=== PATIENT | female | born 1985 | race Caucasian/White ===

== ENCOUNTER 2018-06-14 12:14 | Emergency (ER) | payer SELFPAY ==
[~2018-06-14] VITALS: Ht 160 cm; Wt 72.6 kg
[2018-06-14 12:29] VITALS: BP 138/100
--- NOTE | 2018-06-14 12:38 | PHYS DOC ---
Past History Past Medical History: Diabetes, Other Additional Past Medical Histor: peripheral neuropathy Alcohol Use: None Drug Use: None Adult General Chief Complaint Chief Complaint: COUGH HPI HPI Patient is a 33-year-old female who presents with a cough for the past month. Nasal congestion. Became a little bit worse this morning, coughing so hard that she threw up one time. No blood in the emesis. Nothing seems to make the symptoms better or worse. Patient has not seen her primary care physician for this. No fever.[] Review of Systems Review of Systems Constitutional: Denies fever or chills [] Eyes: Denies change in visual acuity, redness, or eye pain [] HENT: Nasal congestion and sore throat for the past month[] Respiratory: See history of present illness[] Cardiovascular: No chest pain or palpitations[] GI: Denies abdominal pain, nausea, bloody stools or diarrhea [] : Denies dysuria or hematuria [] Musculoskeletal: Denies back pain or joint pain [] Integument: Denies rash or skin lesions [] Neurologic: Denies headache, focal weakness or sensory changes [] Endocrine: Denies polyuria or polydipsia [] All other systems were reviewed and found to be within normal limits, except as documented in this note. Allergies Allergies Allergies Coded Allergies Type Severity Reaction Last Updated Verified No Known Drug Allergies 06/14/18 No Physical Exam Physical Exam Constitutional: Well developed, well nourished, no acute distress, non-toxic appearance. [] HENT: Normocephalic, atraumatic, bilateral external ears normal, oropharynx moist, no oral exudates, nose with clear rhinorrhea, posterior pharyngeal streaking,. [] Eyes: PERRLA, EOMI, conjunctiva normal, no discharge. [] Neck: Normal range of motion, no tenderness, supple, no stridor. [] Cardiovascular:Heart rate is slightly tachycardic with a regular rhythm, no murmur [] Lungs & Thorax: Bilateral breath sounds clear to auscultation [] Abdomen: Bowel sounds normal, soft, no tenderness, no masses, no pulsatile masses. [] Skin: Warm, dry, no erythema, no rash. [] Back: No tenderness, no CVA tenderness. [] Extremities: No tenderness, no cyanosis, no clubbing, ROM intact, no edema. [] Neurologic: Alert and oriented X 3, normal motor function, normal sensory function, no focal deficits noted. [] Psychologic: Affect normal, judgement normal, mood normal. [] EKG EKG [] Radiology/Procedures Radiology/Procedures Chest x-ray shows no focal infiltrate, no effusion, no pneumothorax[] Course & Med Decision Making Course & Med Decision Making Pertinent Labs and Imaging studies reviewed. (See chart for details) ED course and medical decision making: Patient arrived, was placed in bed, and tolerated exam well. She was. Tolerant while in the emergency department. She was transported to and from radiology with any complications. There is no evidence of a pneumonia. No evidence of oral intake intolerance. Will start patient on cough/congestion medicine that also has anti-medic properties. Discussed this plan with the patient voiced understanding. All questions were answered.[] Dragon Disclaimer Dragon Disclaimer This electronic medical record was generated, in whole or in part, using a voice recognition dictation system. Departure Departure: Impression: Primary Impression: Cough Disposition: HOME, SELF-CARE Condition: IMPROVED Referrals: [facility] (PCP) Follow-up in 2 days Patient Instructions: Cough, Adult, Nausea and Vomiting Additional Instructions: Drink plenty of fluids, frequent small sips. No fatty foods, no milk, and no pepper for the next 48 hours. For the next 48 hours eat a diet rich in carbohydrates with foods such as bananas, rice, applesauce, and toast. Follow- up with your primary care team in 2 days. Return to the ER if unable to tolerate liquids, or any other concerns. Scripts D-Methorphan Hb/Prometh Hcl (PROMETHAZINE-DM SYRUP) 118 Ml Syrup 5 ML PO PRN Q4HRS for CONGESTION, #120 ML Prov: LOAN CHEN DO 06/14/18 LOAN CHEN DO Jun 14, 2018 12:38
[2018-06-14] MEDS ORDERED: ONDANSETRON ODT 4 MG TAB.RAPDIS PO ONE (13:00)
--- NOTE | 2018-06-14 13:41 | RAD ---
PA and lateral views of the chest. Comparison: Chest radiograph dated 04/24/2007. Indication: cough with short of breath x 1 month, pt shielded Findings: Normal lung volume. No focal airspace disease. Normal pulmonary vasculature. No pleural effusion. No pneumothorax. The cardiomediastinal silhouette is normal in appearance. The great vessels are normal. No acute osseous abnormality. Mild multilevel degenerative changes of the visualized spine. Impression: 1. No acute cardiopulmonary process. Electronically signed by: Krzysztof Hopkins MD (06/14/2018 1:38 PM) [facility]
[2018-06-14] MEDS ORDERED: D-ME118S2 PO (13:43)
== END 2018-06-14 14:00 | disposition home or self-care (01) ==
LOC: ER 12:14
DX: R05 Cough (principal); R09.81 Nasal congestion; R11.11 Vomiting without nausea; E11.42 Type 2 diabetes mellitus with diabetic polyneuropathy
CPT/HCPCS: 71046; 99283; Q0162

== ENCOUNTER 2018-09-08 20:23 | Emergency (ER) | payer SELFPAY ==
[~2018-09-08] VITALS: Ht 160 cm; Wt 81.6 kg
[~2018-09-08 20:23] MED LIST: D-ME118S2 PO
--- NOTE | 2018-09-08 20:50 | PHYS DOC ---
Past History Past Medical History: Depression, Diabetes, Other Additional Past Medical Histor: peripheral neuropathy Past Surgical History: Tubal ligation Smoking: Cigarettes Alcohol Use: None Drug Use: None Adult General Chief Complaint Chief Complaint: HALLUCINATIONS AUDIBLE/VISUAL HPI HPI Patient is a 33-year-old female presents with a change in mental status and behavior. This is been going on for the past 3 days. Denies head trauma or headache. Family that is with the patient says that the patient is slurring some words. No suicidal or homicidal ideation. She is hearing voices telling her odd things. Patient realizes that there is no physical body giving rise to these voices. There have been no changes in medications. No trauma. No fever. No nausea or vomiting. More of a confusional state rather than inability to move an arm or leg. Patient denies taking any drugs recently. She does have a history of marijuana and methamphetamine abuse with her last use being in April 2018.[] Review of Systems Review of Systems Constitutional: Denies fever or chills [] Eyes: Denies change in visual acuity, redness, or eye pain [] HENT: Denies nasal congestion or sore throat [] Respiratory: Denies cough or shortness of breath [] Cardiovascular: No chest pain or palpitations[] GI: Denies abdominal pain, nausea, vomiting, bloody stools or diarrhea [] : Denies dysuria or hematuria [] Musculoskeletal: Denies back pain or joint pain [] Integument: Denies rash or skin lesions [] Neurologic: Denies headache, focal weakness or sensory changes [] Endocrine: Denies polyuria or polydipsia [] All other systems were reviewed and found to be within normal limits, except as documented in this note. Allergies Allergies Allergies Coded Allergies Type Severity Reaction Last Updated Verified No Known Drug Allergies 06/14/18 No Physical Exam Physical Exam Constitutional: Well developed, well nourished, no acute distress, non-toxic appearance. [] HENT: Normocephalic, atraumatic, bilateral external ears normal, oropharynx moist, no oral exudates, nose normal. [] Eyes: PERRLA, EOMI, conjunctiva normal, no discharge. [] Neck: Normal range of motion, no tenderness, supple, no stridor. [] Cardiovascular:Heart rate is tachycardic with a regular rhythm, no murmur [] Lungs & Thorax: Bilateral breath sounds clear to auscultation [] Abdomen: Bowel sounds normal, soft, no tenderness, no masses, no pulsatile masses. [] Skin: Warm, dry, no erythema, no rash. [] Back: No tenderness, no CVA tenderness. [] Extremities: No tenderness, no cyanosis, no clubbing, ROM intact, no edema. [] Neurologic: Alert and oriented X 3, normal motor function, normal sensory function, no focal deficits noted. NIH stroke scale of 0. Normal gait[] Psychologic: Affect normal, judgement normal, mood normal. [] EKG EKG EKG shows a sinus tachycardia at 119 bpm. Normal axis, QTC 451 ms, no ST elevations. No terminal 40 ms QRS prolongation in lead aVR. No old EKG available for comparison. Interpreted by me at 2127[] Radiology/Procedures Radiology/Procedures PROCEDURE: PORTABLE CHEST 1V AP portable chest radiograph 09/08/2018 Clinical History: Shortness of breath. An AP erect portable digital radiograph of the chest was obtained. Comparison study is dated 06/14/2018. The cardiac and mediastinal silhouettes are within normal limits in size and configuration. No acute pulmonary infiltrate is seen. No pleural effusion or pneumothorax is noted. The osseous structures are unchanged. Impression: No acute abnormality is seen. PROCEDURE: CT HEAD WO CONTRAST CT scan of the head without contrast 09/08/2018 Clinical History: Altered mental status. Technique: Unenhanced, contiguous, 5 mm axial sections were obtained through the head. One or more of the following individualized dose reduction techniques were utilized for this study: 1. Automated exposure control. 2. Adjustment of the mA and/or kV according to patient size. 3. Use of iterative reconstruction technique. Findings: The ventricles and sulci are within normal limits in size and configuration. No focal area of abnormal attenuation is seen involving the brain parenchyma. No extra-axial fluid collection is seen. No skull fracture is seen. Impression: Negative study.[] Course & Med Decision Making Course & Med Decision Making Pertinent Labs and Imaging studies reviewed. (See chart for details) ED course: Patient arrived, was placed in bed, and tolerated exam well. She was transported to and from radiology with any complications. Her fingerstick was noted to be elevated. She was given IV fluids to address the tachycardia. And her heart rate improved. After the return of the laboratory and imaging studies, these were discussed with patient and family who voiced understanding. Family notes that she is been taking increased doses of her pain and muscle relaxant medicines beyond the prescribed amounts. Consultation was made with the hospitalist service for admission and they graciously agreed. She was admitted in improved condition. At approximately 28/05/11, patient is refusing admission. She relates that she has a barbosa hearing in 2 days. And states that she cannot be admitted. She appears able to make an informed decision including being able to state the risks in her own words to include or permanent disability. She signed out AGAINST MEDICAL ADVICE. Family was with her. Medical decision making: Diabetic patient with a change in behavior and hallucinations. This may be due to taking too much of her Lyrica as well as muscle relaxants. There is no evidence of diabetic ketoacidosis, hyperosmolar nonketotic coma, stroke, intracranial mass or bleed, nor significant electrolyte abnormality. She is being admitted for further evaluation and treatment.[] Dragon Disclaimer Dragon Disclaimer This electronic medical record was generated, in whole or in part, using a voice recognition dictation system. Departure Departure: Impression: Primary Impression: Mental status alteration Additional Impressions: Hallucinations Diabetes Disposition: 07 AGAINST MEDICAL ADVICE Admitting Physician: Margie Whipple Condition: IMPROVED [facility] Problem Qualifiers Primary Impression: Mental status alteration Altered mental status type: unspecified Qualified Codes: R41.82 - Altered mental status, unspecified Additional Impressions: Diabetes Diabetes mellitus type: type 2 Diabetes mellitus fci insulin use: unspecified long term care phlebotomist insulin use status Diabetes mellitus complication status: without complication Qualified Codes: E11.9 - Type 2 diabetes mellitus without complications LOAN CHEN DO Sep 08, 2018 20:50
[2018-09-08] MEDS: IV NORMAL SALINE 1,000ML 1,000 ML IV ONE (21:11)
[2018-09-08 21:20] LABS: BASO # 0.1 x10^3/uL (0.0-0.2); BASO % 1 % (0-3); EOS # 0.1 x10^3/uL (0.0-0.7); EOS % 1 % (0-3); HEMATOCRIT 41.3 % (36.0-47.0); LYMPH % 45 % (24-48); MEAN CORPUSCULAR HEMOGLOBIN 30 pg (25-35); MEAN CORPUSCULAR HGB CONC 34 g/dL (31-37); MEAN CORPUSCULAR VOLUME 88 fL (79-100); MONO # 0.5 x10^3/uL (0.0-1.1); MONO % 5 % (0-9); NEUT # 4.3 x10^3uL (1.8-7.7); NEUT % 48 % (31-73); PLATELET COUNT 240 x10^3/uL (140-400); RED BLOOD COUNT 4.68 x10^6/uL (3.50-5.40); RED CELL DISTRIBUTION WIDTH 12.9 % (11.5-14.5)
[2018-09-08 21:28] LABS: BARBITURATES NEG (NEG); BENZODIAZEPINES NEG (NEG); CANNABINOIDS NEG (NEG); COCAINE NEG (NEG); METHADONE NEG (NEG); OPIATES NEG (NEG); PHENCYCLIDINE NEG (NEG)
--- NOTE | 2018-09-08 21:28 | EKG ---
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
--- NOTE | 2018-09-08 21:30 | RAD ---
CT scan of the head without contrast 09/08/2018 Clinical History: Altered mental status. Technique: Unenhanced, contiguous, 5 mm axial sections were obtained through the head. One or more of the following individualized dose reduction techniques were utilized for this study: 1. Automated exposure control. 2. Adjustment of the mA and/or kV according to patient size. 3. Use of iterative reconstruction technique. Findings: The ventricles and sulci are within normal limits in size and configuration. No focal area of abnormal attenuation is seen involving the brain parenchyma. No extra-axial fluid collection is seen. No skull fracture is seen. Impression: Negative study. Electronically signed by: Manny Colbert MD (09/08/2018 9:28 PM) [facility]
--- NOTE | 2018-09-08 21:31 | RAD ---
AP portable chest radiograph 09/08/2018 Clinical History: Shortness of breath. An AP erect portable digital radiograph of the chest was obtained. Comparison study is dated 06/14/2018. The cardiac and mediastinal silhouettes are within normal limits in size and configuration. No acute pulmonary infiltrate is seen. No pleural effusion or pneumothorax is noted. The osseous structures are unchanged. Impression: No acute abnormality is seen. Electronically signed by: Manny Colbert MD (09/08/2018 9:28 PM) [facility]
[2018-09-08 21:33] LABS: BILIRUBIN,URINE NEG (NEG); CLARITY,URINE CLEAR; COLOR,URINE YELLOW; GLUCOSE,URINE NEG (NEG); NITRITE,URINE NEG (NEG); RBC,URINE OCC /HPF (0-2); UROBILINOGEN,URINE 0.2 mg/dL (0.2 mg/dL)
[2018-09-08 21:34] LABS: BACTERIA,URINE FEW /HPF (0-FEW); SQUAMOUS EPITHELIAL CELL,UR OCC /LPF
[2018-09-08 21:40] LABS: AMPHETAMINE/METHAMPHETAMINE NEG (NEG)
[2018-09-08 21:41] LABS: ALBUMIN 3.8 g/dL (3.4-5.0); CALCIUM 10.1 mg/dL (8.5-10.1); CREATININE 0.8 mg/dL (0.6-1.0); GFR 82.1; POTASSIUM 3.7 mmol/L (3.5-5.1); TOTAL BILIRUBIN 0.2 mg/dL (0.2-1.0); TOTAL PROTEIN 7.8 g/dL (6.4-8.2)
[2018-09-08 22:40] VITALS: BP 138/77
[2018-09-08] MEDS ORDERED: IV NORMAL SALINE 1,000ML 1,000 ML IV SCH (22:45)
[2018-09-08] MEDS ORDERED: ACETAMINOPHEN 325 MG TABLET PO PRN (22:45)
[2018-09-08] MEDS ORDERED: ONDANSETRON PF 4 MG/2 ML VIAL. IV PRN (22:45)
== END 2018-09-08 23:12 | disposition left against medical advice (07) ==
LOC: ER 20:23 → UNDOADMIN 21:55 → ICU 21:55 → ER 23:12
DX: R41.82 Altered mental status, unspecified (principal); R44.0 Auditory hallucinations; E11.42 Type 2 diabetes mellitus with diabetic polyneuropathy; F32.9 Major depressive disorder, single episode, unspecified; F17.210 Nicotine dependence, cigarettes, uncomplicated
CPT/HCPCS: 36415; 70450; 71045; 80053; 80307; 81001; 81025; 82140; 82550; 82947; 83735; 83880; 84484; 85025; 85610; 85730; 87040; 93005; 96360; 96361; 99285-25; J7030

== ENCOUNTER 2020-09-12 11:12 | Emergency (ER) | payer MEDICAID ==
[~2020-09-12] VITALS: Ht 160 cm; Wt 75.7 kg
[~2020-09-12 11:12] MED LIST changes: +BACL20TA PO; +CLIN150C15 PO; +CYCL5TAB PO; -D-ME118S2 PO; +GABA800T5 PO; +HYDR-2155 PO; +INSU100I13 SQ; +LIRA0.6P2 SQ; +NITR100C62 PO; +POTA20TA4 PO; +PROM118S10 PO
[2020-09-12 12:15] LABS: CALCIUM 8.9 mg/dL (8.5-10.1); CREATININE 0.9 mg/dL (0.6-1.0); GFR 70.8; POTASSIUM 4.5 mmol/L (3.5-5.1)
[2020-09-12 12:16] LABS: BASO # 0.1 x10^3/uL (0.0-0.2); BASO % 1 % (0-3); EOS # 0.2 x10^3/uL (0.0-0.7); EOS % 2 % (0-3); HEMATOCRIT 41.2 % (36.0-47.0); LYMPH # 3.8 x10^3/uL (1.0-4.8); LYMPH % 37 % (24-48); MEAN CORPUSCULAR HEMOGLOBIN 30 pg (25-35); MEAN CORPUSCULAR HGB CONC 34 g/dL (31-37); MEAN CORPUSCULAR VOLUME 89 fL (79-100); MONO # 0.6 x10^3/uL (0.0-1.1); MONO % 6 % (0-9); NEUT # 5.7 x10^3uL (1.8-7.7); NEUT % 55 % (31-73); PLATELET COUNT 358 x10^3/uL (140-400); RED BLOOD COUNT 4.61 x10^6/uL (3.50-5.40); RED CELL DISTRIBUTION WIDTH 13.8 % (11.5-14.5); WHITE BLOOD COUNT 10.4 x10^3/uL (4.0-11.0)
[2020-09-12 12:16] LABS: BARBITURATES NEG (NEG); BENZODIAZEPINES NEG (NEG); CANNABINOIDS NEG (NEG); COCAINE NEG (NEG); METHADONE NEG (NEG); OPIATES NEG (NEG); PHENCYCLIDINE NEG (NEG)
[2020-09-12 12:18] LABS: AMPHETAMINE/METHAMPHETAMINE POS (NEG)
[2020-09-12 12:20] LABS: ACETAMIN < 2.0 mcg/mL (10-30); ALBUMIN 3.7 g/dL (3.4-5.0); ALBUMIN/GLOBULIN RATIO 0.8 (1.0-1.7); TOTAL BILIRUBIN 0.1 mg/dL (0.2-1.0); TOTAL PROTEIN 8.1 g/dL (6.4-8.2)
[2020-09-12 12:22] LABS: BILIRUBIN,URINE NEG (NEG); CLARITY,URINE HAZY; COLOR,URINE YELLOW; GLUCOSE,URINE NEG (NEG); NITRITE,URINE NEG (NEG); UROBILINOGEN,URINE 0.2 mg/dL (0.2 mg/dL)
[2020-09-12 12:24] LABS: BACTERIA,URINE MOD /HPF (0-FEW); RBC,URINE 0 /HPF (0-2); SQUAMOUS EPITHELIAL CELL,UR MANY /LPF
[2020-09-12] MEDS ORDERED: BACLOFEN 20 MG TABLET PO ONE (14:00)
[2020-09-12] MEDS ORDERED: GABAPENTIN 400 MG CAPSULE. PO ONE (14:00)
[2020-09-12] MEDS ORDERED: FOSFOMYCIN TROMETHAMINE 3 GM PACKET PO ONE (14:15)
--- NOTE | 2020-09-12 14:17 | PHYS DOC ---
Past History Past Medical History: Anxiety, Depression, Diabetes, Hypertension, Other Additional Past Medical Histor: neuropathy, Hep C, drug abuse (SRIRAM FLORES APRN) Past Surgical History: No Surgical History (SRIRAM FLORES APRN) Smoking: Non-smoker Alcohol Use: None (SRIRAM FLORES APRN) General Adult EDM: Chief Complaint: SUICIDAL IDEATION HPI: HPI: Patient is a 35-year-old female presents with depression, anxiety and SI. Patient states "I have a history of SI attempts in the past". Patient has a history of methamphetamine use. Patient states that she is clean and does not use any longer. Patient is stating that she is wanting to get inpatient care for depression and suicidal thoughts. (SRIRAM FLORES APRN) Review of Systems: Review of Systems: Constitutional: Denies fever or chills Eyes: Denies change in visual acuity HENT: Denies nasal congestion or sore throat Respiratory: Denies cough or shortness of breath Cardiovascular: Denies chest pain or edema GI: Denies abdominal pain, nausea, vomiting, bloody stools or diarrhea : Denies dysuria Musculoskeletal: Denies back pain or joint pain Integument: Denies rash Neurologic: Denies headache, focal weakness or sensory changes Endocrine: Denies polyuria or polydipsia Lymphatic: Denies swollen glands Psychiatric: Reports depression and anxiety (SRIRAM FLORES APRN) Current Medications: Current Meds: Current Medications Medications (Trade) Dose Ordered Sig/Caroline Start Time Stop Time Status Last Admin Dose Admin Baclofen (Lioresal) 20 mg ONCE ONCE 09/12/20 14:00 09/12/20 14:01 DC 09/12/20 13:58 20 MG Gabapentin (Neurontin) 800 mg 1X ONCE 09/12/20 14:00 09/12/20 14:01 DC 09/12/20 13:59 800 MG (SRIRAM FLORES APRN) Allergies: Allergies: Allergies Coded Allergies Type Severity Reaction Last Updated Verified No Known Drug Allergies 03/22/20 No (SRIRAM FLORES APRN) Physical Exam: PE: Constitutional: Well developed, well nourished, no acute distress, non-toxic appearance. [] HENT: Normocephalic, atraumatic, bilateral external ears normal, oropharynx moist, no oral exudates, nose normal. [] Eyes: PERRLA, EOMI, conjunctiva normal, no discharge. [] Neck: Normal range of motion, no tenderness, supple, no stridor. [] Cardiovascular:Heart rate regular rhythm, no murmur [] Lungs & Thorax: Bilateral breath sounds clear to auscultation [] Abdomen: Bowel sounds normal, soft, no tenderness, no masses, no pulsatile masses. [] Skin: Warm, dry, no erythema, no rash. [] Back: No tenderness, no CVA tenderness. [] Extremities: No tenderness, no cyanosis, no clubbing, ROM intact, no edema. [] Neurologic: Alert and oriented X 3, normal motor function, normal sensory function, no focal deficits noted. [] Psychologic: Sad, tearful (SRIRAM FLORES SEO EXECUTIVE) Current Patient Data: Labs: Laboratory Tests Test 09/12/20 11:25 09/12/20 11:37 09/12/20 11:40 09/12/20 11:45 Urine Collection Type Unknown Urine Color Yellow Urine Clarity Hazy Urine pH 6.5 Urine Specific [place] 1.020 Urine Protein Neg (NEG-TRACE) Urine Glucose (UA) Neg mg/dL (NEG) Urine Ketones (Stick) Neg mg/dL (NEG) Urine Blood Trace (NEG) Urine Nitrite Neg (NEG) Urine Bilirubin Neg (NEG) Urine Urobilinogen Dipstick 0.2 mg/dL (0.2 mg/dL) Urine Leukocyte Esterase Trace (NEG) Urine RBC 0 /HPF (0-2) Urine WBC 5-10 /HPF (0-4) Urine Squamous Epithelial Cells Many /LPF Urine Bacteria Mod /HPF (0-FEW) Urine Opiates Screen Neg (NEG) Urine Methadone Screen Neg (NEG) Urine Barbiturates Neg (NEG) Urine Phencyclidine Screen Neg (NEG) Urine Amphetamine/Methamphetamine Pos (NEG) Urine Benzodiazepines Screen Neg (NEG) Urine Cocaine Screen Neg (NEG) Urine Cannabinoids Screen Neg (NEG) Urine Ethyl Alcohol Neg (NEG) POC Urine HCG, Qualitative hcg negative (Negative) White Blood Count 10.4 x10^3/uL (4.0-11.0) Red Blood Count 4.61 x10^6/uL (3.50-5.40) Hemoglobin 14.0 g/dL (12.0-15.5) Hematocrit 41.2 % (36.0-47.0) Mean Corpuscular Volume 89 fL (79-100) Mean Corpuscular Hemoglobin 30 pg (25-35) Mean Corpuscular Hemoglobin Concent 34 g/dL (31-37) Red Cell Distribution Width 13.8 % (11.5-14.5) Platelet Count 358 x10^3/uL (140-400) Neutrophils (%) (Auto) 55 % (31-73) Lymphocytes (%) (Auto) 37 % (24-48) Monocytes (%) (Auto) 6 % (0-9) Eosinophils (%) (Auto) 2 % (0-3) Basophils (%) (Auto) 1 % (0-3) Neutrophils # (Auto) 5.7 x10^3uL (1.8-7.7) Lymphocytes # (Auto) 3.8 x10^3/uL (1.0-4.8) Monocytes # (Auto) 0.6 x10^3/uL (0.0-1.1) Eosinophils # (Auto) 0.2 x10^3/uL (0.0-0.7) Basophils # (Auto) 0.1 x10^3/uL (0.0-0.2) Sodium Level 139 mmol/L (136-145) Potassium Level 4.5 mmol/L (3.5-5.1) Chloride Level 104 mmol/L (98-107) Carbon Dioxide Level 25 mmol/L (21-32) Anion Gap 10 (6-14) Blood Urea Nitrogen 23 mg/dL (7-20) H Creatinine 0.9 mg/dL (0.6-1.0) Estimated GFR (Cockcroft-Gault) 70.8 BUN/Creatinine Ratio 26 (6-20) H Glucose Level 185 mg/dL (70-99) H Calcium Level 8.9 mg/dL (8.5-10.1) Total Bilirubin 0.1 mg/dL (0.2-1.0) L Aspartate Amino Transferase (AST) 18 U/L (15-37) Alanine Aminotransferase (ALT) 27 U/L (14-59) Alkaline Phosphatase 81 U/L (46-116) Total Protein 8.1 g/dL (6.4-8.2) Albumin 3.7 g/dL (3.4-5.0) Albumin/Globulin Ratio 0.8 (1.0-1.7) L Salicylates Level 5.0 mg/dL (2.8-20.0) Salicylate Last Dose Date Unknown Salicylate Last Dose Time Unknown Acetaminophen Level < 2.0 mcg/mL (10-30) L Acetaminophen Last Dose Date Unknown Acetaminophen Last Dose Time Unknown SARS-CoV-2 Antigen (Rapid) Negative (NEGATIVE) Vital Signs: Vital Signs Date Time Temp Pulse Resp B/P (MAP) Pulse Ox O2 Delivery O2 Flow Rate FiO2 09/12/20 11:12 98.7 71 16 168/106 97 Room Air (SRIRAM FLORES APRN) EKG: EKG: [] (SRIRAM FLORES APRN) Radiology/Procedures: Radiology/Procedures: [] (SRIRAM FLORES APRN) Heart Score: C/O Chest Pain: No Risk Factors: Risk Factors: DM, Current or recent (<one month) smoker, HTN, HLP, family history of CAD, obesity. Risk Scores: Score 0 - 3: 2.5% MACE over next 6 weeks - Discharge Home Score 4 - 6: 20.3% MACE over next 6 weeks - Admit for Clinical Observation Score 7 - 10: 72.7% MACE over next 6 weeks - Early Invasive Strategies (SRIRAM FLORES APRN) Course & Med Decision Making: Course & Med Decision Making Pertinent Labs and Imaging studies reviewed. (See chart for details) [] 35-year-old female who presents with SI and depression. Patient has a history of SI attempts. Kendrick from PAT team consulted to speak with patient. UA positive for methamphetamine. Patient states that she has been clean does not understand how her urine could be positive for methamphetamine. Also positive for infection. Patient given fosfomycin to treat UTI. Covid was negative. Kendrick is getting inpatient placement for patient. Patient will be admitted to [facility]. Patient is appreciative and on board with placement plan. (SRIRAM FLORES APRN) Jarrod Disclaimer: Jarrod Disclaimer: This electronic medical record was generated, in whole or in part, using a voice recognition dictation system. (SRIRAM FLORES APRN) Attending Co-Sign The patient was seen and interviewed as well as examined at the bedside. The chart was reviewed. The case was discussed. Agree with the plan of care. (LUIS M HENRY DO) Departure Departure: Impression: Primary Impression: Suicidal ideation Additional Impression: Depression Qualified Codes: F32.9 - Major depressive disorder, single episode, unspe cified Disposition: 01 HOME / SELF CARE / HOMELESS Condition: STABLE Referrals: PCP,WANDA (PCP) Patient Instructions: Suicidal Feelings, How to Help Yourself Additional Instructions: You were seen in the emergency room for suicidal thoughts. Your urine was also positive for infection. You were given medication in the emergency room to treat UTI. We also found placement for you at an inpatient facility to help with your depression and suicidal thoughts. EMERGENCY DEPARTMENT GENERAL DISCHARGE INSTRUCTIONS Thank you for coming to [facility] (ED) today and trusting us with you care. We trust that you had a positivie experience in our Emergency Department. If you wish to speak to the department management, you may call the director at [phone]. YOUR FOLLOW UP INSTRUCTIONS ARE FOLLOWS: 1. Do you have a private Doctor? If you do not have a private doctor, please ask for a resource list of physicians or clinics that may be able to assist you with follow up care. 2. The Emergency Physician has interpreted your x-rays. The X-Ray specialist will also review them. If there is a change in the findings, you will be notified in 48 hours when at all possible. 3. A lab test or culture has been done, your results will be reviewed and you will be notified if you need a change in treatment. ADDITIONAL INSTRUCTIONS AND INFORMATION: 1. Your care today has been supervised by a physician who is specially trained in emergency care. Many problems require more than one evaluation for a complete diagnosis and treatment. We recommend that you schedule your follow up appointment as recommended to ensure complete treatment of you illness or injury. If you are unable to obtain follow up care and continue to have a problem, or if your condition worsens, we recommend that you return to the ED. 2. We are not able to safely determine your condition over the phone nor are we able to give sound medical advice over the phone. For these safety reasons, if you call for medical advice we will ask you to come to the ED for further evaluation. 3. If you have any questions regarding these discharge instructions please call the ED at [phone]. SAFETY INFORMATION: In the interest of safety, wellness, and injury prevention; we encourage you to wear your sealbelt, if you smoke; quite smoking, and we encourage family to use a protective helmet for bicycling and other sporting events that present an increased risk for head injury. IF YOUR SYMPTOMS WORSEN OR NEW SYMPTOMS DEVELOP, OR YOU HAVE CONCERNS ABOUT YOUR CONDITION; OR IF YOUR CONDITION WORSENS WHILE YOU ARE WAITING FOR YOUR FOLLOW UP APPOINTMENT; EITHER CONTACT YOUR PRIMARY CARE DOCTOR, THE PHYSICIAN WHOSE NAME AND NUMBER YOU WERE GIVEN, OR RETURN TO THE ED IMMEDIATELY. SRIRAM FLORES APRN Sep 12, 2020 14:17 LUIS M HENRY DO Sep 14, 2020 06:21
[2020-09-12 14:34] VITALS: BP 133/99
== END 2020-09-12 16:23 ==
LOC: ER 11:12 → MERGE 11:12 → ER 16:23
DX: R45.851 Suicidal ideations (principal); F32.9 Major depressive disorder, single episode, unspecified; F41.9 Anxiety disorder, unspecified; I10 Essential (primary) hypertension; E11.40 Type 2 diabetes mellitus with diabetic neuropathy, unspecified; Z20.822 Contact with and (suspected) exposure to COVID-19
CPT/HCPCS: 36415; 80053; 80307; 80329; 81001; 81025; 85025; 87086; 87426; 99285; U0003; G0480

== ENCOUNTER 2020-09-21 16:41 | Inpatient (IN) | payer MEDICAID ==
[~2020-09-21] VITALS: Ht 160 cm; Wt 76.5 kg
[2020-09-21] MEDS ORDERED: IV NORMAL SALINE 1,000ML 1,000 ML IV ONE ×2 (16:45→19:30)
--- NOTE | 2020-09-21 17:08 | PHYS DOC ---
Past History Past Medical History: Anxiety, Depression, Diabetes, Hypertension, Other Additional Past Medical Histor: neuropathy, Hep C, drug abuse Past Surgical History: No Surgical History Smoking: Non-smoker Alcohol Use: None Drug Use: Marijuana, Methamphetamine General Adult EDM: Chief Complaint: Laceration HPI: HPI: 35-year-old female presents with laceration of her left ring finger. She initially stated that it just happened, but then told me that it was sometime last night. She was digging through a dumpster or something. The patient is intoxicated on drugs and not all of her answers are making sense. She has some other superficial scratches of her lower legs. She denies any other complaints. Review of Systems: Review of Systems: Constitutional: Denies fever or chills Eyes: Denies change in visual acuity HENT: Denies nasal congestion or sore throat Respiratory: Denies cough or shortness of breath Cardiovascular: Denies chest pain or edema GI: Denies abdominal pain, nausea, vomiting, bloody stools or diarrhea : Denies dysuria Musculoskeletal: Denies back pain or joint pain Integument: Laceration left ring finger. Neurologic: Denies headache, focal weakness or sensory changes Endocrine: Denies polyuria or polydipsia Lymphatic: Denies swollen glands Psychiatric: Denies depression or anxiety Current Medications: Current Meds: Current Medications Medications (Trade) Dose Ordered Sig/Caroline Start Time Stop Time Status Last Admin Dose Admin Lorazepam (Ativan Inj) 2 mg 1X ONCE 09/21/20 16:45 09/21/20 16:52 DC Sodium Chloride 1,000 ml @ 1,000 mls/hr 1X ONCE 09/21/20 16:45 09/21/20 17:44 Allergies: Allergies: Allergies Coded Allergies Type Severity Reaction Last Updated Verified No Known Drug Allergies 06/14/18 No Physical Exam: PE: Constitutional: Well developed, well nourished, unkept, intoxicated. [] HENT: Normocephalic, atraumatic, bilateral external ears normal, oropharynx moist, no oral exudates, nose normal. [] Eyes: PERRLA, EOMI, conjunctiva normal, no discharge. [] Neck: Normal range of motion, no tenderness, supple, no stridor. [] Cardiovascular:Heart rate regular rhythm, no murmur [] Lungs & Thorax: Bilateral breath sounds clear to auscultation [] Abdomen: Bowel sounds normal, soft, no tenderness, no masses, no pulsatile masses. [] Skin: 4 cm laceration of the left ring finger appears several hours old. [] Back: No tenderness, no CVA tenderness. [] Extremities: No tenderness, no cyanosis, no clubbing, ROM intact, no edema. [] Neurologic: Patient is fidgety and constantly moving, consistent with methamphetamine use. [] Psychologic: Affect pressured, judgement impaired, mood normal. [] EKG: EKG: [] Radiology/Procedures: Radiology/Procedures: [] Impressions: XR FINGER(S)_LEFT 2+VIEWS_RT 09/21/2020 4:58 PM INDICATION: Laceration COMPARISON: None available. TECHNIQUE: 3 views of the fourth digit of the left hand are provided. FINDINGS/ IMPRESSION: There is a soft tissue defect along the ulnar margin of the proximal interphalangeal joint of fourth digit of the left hand. No acute fracture or dislocation. Bone mineralization is within normal limits. Joint spaces are maintained. Minimal punctate radiopaque debris identified along the subcutaneous soft tissues. No metallic foreign density. Electronically signed by: Hi Martin MD (09/21/2020 5:55 PM) [facility] DICTATED AND SIGNED BY: HI MARTIN MD DATE: 09/21/201753 CC: LUIS M HENRY DO; PCP,NO ~MTH0 0 Heart Score: C/O Chest Pain: N/A Risk Factors: Risk Factors: DM, Current or recent (<one month) smoker, HTN, HLP, family history of CAD, obesity. Risk Scores: Score 0 - 3: 2.5% MACE over next 6 weeks - Discharge Home Score 4 - 6: 20.3% MACE over next 6 weeks - Admit for Clinical Observation Score 7 - 10: 72.7% MACE over next 6 weeks - Early Invasive Strategies Course & Med Decision Making: Course & Med Decision Making Pertinent Labs and Imaging studies reviewed. (See chart for details) The patient's laceration appears to be old. I did repair it with sutures in a loose fashion. See note below for details. I covered her with 1 g of Rocephin IV. The patient was obviously intoxicated on arrival so she was given 4 mg of Ativan IV and 50 mg of Benadryl. I will admit her to the hospital for methamphetamine overdose and to monitor her for infection. I spoke with Dr. Whipple and he has accepted patient for admission. [] Jarrod Disclaimer: Jarrod Disclaimer: This electronic medical record was generated, in whole or in part, using a voice recognition dictation system. Laceration Repair Lac Repair Indication: [] 4 cm curvilinear laceration of the left ring finger. Procedure: I obtained verbal consent from the patient for suture repair of her finger laceration. The wound was anesthetized with 3 cc of 2% lidocaine without epinephrine. Once good anesthesia was achieved, I thoroughly irrigated the wound with normal saline under pressure. No foreign bodies were found. No s ignificant foreign bodies were found on x-ray. I repaired the wound loosely with 4-0 Ethilon sutures. Five sutures were placed in an interrupted fashion. The patient was given Rocephin and Tdap in the ED. Total repaired wound length: 4 cm. Other Items: None The patient tolerated the procedure well. Complications: Curvilinear, intoxication. Departure Departure: Impression: Primary Impression: Laceration of left ring finger Qualified Codes: S61.215A - Laceration without foreign body of left ring finger without damage to nail, initial encounter Additional Impression: Methamphetamine intoxication Disposition: ADMITTED INPATIENT Admitting Physician: Margie Whipple Condition: STABLE Referrals: PCP,WANDA (PCP) LUIS M HENRY DO Sep 21, 2020 17:08
[2020-09-21] MEDS ORDERED: diphenhydrAMINE 50 MG/ML VIAL IVP ONE (17:30)
[2020-09-21] MEDS ORDERED: DIPH,PERTUSS(ACELL),TET VAC/PF 0.5 ML SYRINGE. VAX IM ONE (17:30)
[2020-09-21] MEDS ORDERED: cefTRIAXone SODIUM 1 GM VIAL ONE (17:42)
[2020-09-21] MEDS ORDERED: IV NORMAL SALINE 50ML 50 ML ONE (17:42)
[2020-09-21 17:46] LABS: BASO # 0.1 x10^3/uL (0.0-0.2); BASO % 1 % (0-3); EOS % 0 % (0-3); HEMATOCRIT 39.2 % (36.0-47.0); HEMOGLOBIN 13.2 g/dL (12.0-15.5); LYMPH # 3.6 x10^3/uL (1.0-4.8); LYMPH % 18 % (24-48); MEAN CORPUSCULAR HEMOGLOBIN 29 pg (25-35); MEAN CORPUSCULAR HGB CONC 34 g/dL (31-37); MEAN CORPUSCULAR VOLUME 87 fL (79-100); MONO # 1.6 x10^3/uL (0.0-1.1); MONO % 8 % (0-9); NEUT # 15.2 x10^3uL (1.8-7.7); NEUT % 74 % (31-73); PLATELET COUNT 414 x10^3/uL (140-400); RED BLOOD COUNT 4.49 x10^6/uL (3.50-5.40); RED CELL DISTRIBUTION WIDTH 13.5 % (11.5-14.5); WHITE BLOOD COUNT 20.5 x10^3/uL (4.0-11.0)
--- NOTE | 2020-09-21 17:57 | RAD ---
XR FINGER(S)_LEFT 2+VIEWS_RT 09/21/2020 4:58 PM INDICATION: Laceration COMPARISON: None available. TECHNIQUE: 3 views of the fourth digit of the left hand are provided. FINDINGS/ IMPRESSION: There is a soft tissue defect along the ulnar margin of the proximal interphalangeal joint of fourth digit of the left hand. No acute fracture or dislocation. Bone mineralization is within normal limits . Joint spaces are maintained. Minimal punctate radiopaque debris identified along the subcutaneous s oft tissues. No metallic foreign density. Electronically signed by: Taryn Martin MD (09/21/2020 5:55 PM) JAQUAN
[2020-09-21] MEDS ORDERED: ONDANSETRON PF 4 MG/2 ML VIAL. IVP PRN (18:15)
[2020-09-21 18:24] LABS: % BANDS 2 % (0-9); % EOS 1 % (0-5); % LYMPHS 22 % (24-48); % MONOS 10 % (0-10); % SEGS 65 % (35-66)
[2020-09-21 18:25] LABS: PLT ESTIMATE ADEQUATE (ADEQUATE)
[2020-09-21 20:33] LABS: CALCIUM 8.7 mg/dL (8.5-10.1); CREATININE 7.2 mg/dL (0.6-1.0); GFR 6.4; POTASSIUM 5.6 mmol/L (3.5-5.1)
[2020-09-21 20:40] LABS: ALBUMIN 3.8 g/dL (3.4-5.0); TOTAL BILIRUBIN 0.4 mg/dL (0.2-1.0); TOTAL PROTEIN 7.7 g/dL (6.4-8.2)
[2020-09-21 23:01] VITALS: BP 84/66
[2020-09-22 02:14] VITALS: BP 93/59
[2020-09-22 08:43] LABS: BARBITURATES NEG (NEG); BENZODIAZEPINES NEG (NEG); CANNABINOIDS NEG (NEG); COCAINE NEG (NEG); METHADONE NEG (NEG); OPIATES NEG (NEG); PHENCYCLIDINE NEG (NEG)
[2020-09-22 08:44] LABS: AMPHETAMINE/METHAMPHETAMINE POS (NEG)
[2020-09-22 08:53] LABS: BACTERIA,URINE FEW /HPF (0-FEW); BILIRUBIN,URINE NEG (NEG); CLARITY,URINE HAZY; COLOR,URINE YELLOW; GLUCOSE,URINE NEG (NEG); NITRITE,URINE NEG (NEG); SQUAMOUS EPITHELIAL CELL,UR MOD /LPF; UROBILINOGEN,URINE 0.2 mg/dL (0.2 mg/dL)
[2020-09-22 08:54] LABS: HYALINE CASTS, URINE FEW /HPF
[2020-09-22 09:28] LABS: BASO % 0 % (0-3); EOS # 0.1 x10^3/uL (0.0-0.7); EOS % 1 % (0-3); HEMATOCRIT 34.1 % (36.0-47.0); HEMOGLOBIN 11.4 g/dL (12.0-15.5); LYMPH # 2.1 x10^3/uL (1.0-4.8); LYMPH % 18 % (24-48); MEAN CORPUSCULAR HEMOGLOBIN 30 pg (25-35); MEAN CORPUSCULAR HGB CONC 33 g/dL (31-37); MEAN CORPUSCULAR VOLUME 89 fL (79-100); MONO # 0.8 x10^3/uL (0.0-1.1); MONO % 7 % (0-9); NEUT # 8.7 x10^3uL (1.8-7.7); NEUT % 74 % (31-73); PLATELET COUNT 323 x10^3/uL (140-400); RED BLOOD COUNT 3.85 x10^6/uL (3.50-5.40); RED CELL DISTRIBUTION WIDTH 13.8 % (11.5-14.5); WHITE BLOOD COUNT 11.7 x10^3/uL (4.0-11.0)
[2020-09-22 09:30] LABS: CALCIUM 7.8 mg/dL (8.5-10.1); CREATININE 4.4 mg/dL (0.6-1.0); GFR 11.3; POTASSIUM 4.3 mmol/L (3.5-5.1)
[2020-09-22 09:36] LABS: ALBUMIN 3.4 g/dL (3.4-5.0); ALBUMIN/GLOBULIN RATIO 0.9 (1.0-1.7); MAGNESIUM 2.9 mg/dL (1.8-2.4); TOTAL BILIRUBIN 0.5 mg/dL (0.2-1.0)
[2020-09-22 09:47] VITALS: BP 99/53
[2020-09-22] MEDS ORDERED: IV NORMAL SALINE 1,000ML 1,000 ML IV ONE (10:45)
[2020-09-22] MEDS: IV NORMAL SALINE 1,000ML 1,000 ML IV SCH ×2 (11:44→18:30)
[2020-09-22] MEDS ORDERED: INSU100I13 SQ (14:33)
[2020-09-22] MEDS ORDERED: MELO15TA23 PO (14:33)
[2020-09-22] MEDS ORDERED: SITA1TAB11 PO (14:33)
[2020-09-22] MEDS ORDERED: BACL20TA PO (14:33)
[2020-09-22] MEDS ORDERED: LIRA0.6P2 SQ (14:33)
[2020-09-22] MEDS ORDERED: TIZA4TAB8 PO (14:33)
[2020-09-22] MEDS ORDERED: HYDR-2145 PO (14:33)
[2020-09-22] MEDS ORDERED: ESCITALOPRAM OX20 MG PO (14:33)
[2020-09-22] MEDS ORDERED: LISI20TA18 PO (14:33)
[2020-09-22 15:40] VITALS: BP 92/61
[2020-09-22] MEDS: LORazepam 0.5 MG TABLET PO PRN ×2 (16:01→20:53)
[2020-09-22] MEDS: MORPHINE SULFATE 4 MG/ML DISP.SYRIN. IV PRN ×2 (16:02→20:54)
[2020-09-22] MEDS: GABAPENTIN 400 MG CAPSULE. PO SCH ×2 (17:52→20:53)
[2020-09-22] MEDS: CITALOPRAM 20 MG TABLET. PO SCH (17:52)
[2020-09-22] MEDS: BACLOFEN 20 MG TABLET PO SCH ×2 (17:52→20:52)
[2020-09-22] MEDS: tiZANidine 4 MG TABLET. PO SCH ×2 (17:52→20:53)
--- NOTE | 2020-09-22 20:04 | HP ---
HISTORY OF PRESENT ILLNESS: The patient is a 35-year-old female patient who presented to the Emergency Room with a laceration of her left ring finger. She initially stated that it just happened, but then stated that it happened some time the night before. She was digging through a dumpster for something. The patient was intoxicated on drugs and was not able to answer all questions that are making sense. She has some other superficial scratches on her lower legs. She was evaluated in the Emergency Room and has had a lab work that showed a white cell count of 20,000. Her chemistry also showed her hyperkalemia and acute kidney injury as well as rhabdomyolysis. Her urinalysis was essentially unremarkable and toxic screen was positive for amphetamine and methamphetamine. She was admitted with methamphetamine intoxication as well as laceration of her left third finger, the ring finger. Rhabdomyolysis and acute kidney injury was treated with IV fluid together with ceftriaxone and admitted to the ICU for further evaluation and treatment. PAST MEDICAL HISTORY: Significant for rheumatoid arthritis, hypertension, hyperlipidemia, hepatitis C that was treated. PAST SURGICAL HISTORY: Noncontributory. ALLERGIES: SHE IS ALLERGIC TO HYDROCODONE, OXYCODONE. MEDICATIONS: She is on gabapentin 800 mg 3 times a day, baclofen 20 mg 3 times a day, tizanidine 2 mg 4 times a day as needed, meloxicam 15 mg, Victoza 1.8 mg subq once a day, Lantus 23 units at bedtime, Janumet twice a day, citalopram 20 mg and lisinopril 20 mg and hydrochlorothiazide 25 mg once a day. FAMILY HISTORY: She has 3 sisters, and 1 brother. One of her sister is diabetic. Her father is still alive at age of 56 and healthy and mother alive at age of 62 and healthy. SOCIAL HISTORY: She is from her current with which she has 1 son. She has 3 children fathered by other men. She smokes a pack a day, does not drink alcohol, but uses amphetamine weekly according to her as well as marijuana. PHYSICAL EXAMINATION: GENERAL: On arrival to the emergency room, she was intoxicated, but there was no pallor, jaundice, cyanosis or thyromegaly. No jugular venous distention. No limb edema. VITAL SIGNS: Her heart rate was 100, blood pressure was 133/99, temperature was 97.9, respiratory rate was 16 and oxygen saturation was 96% on room air. HEAD, EYES, EARS, NOSE, AND THROAT: Normocephalic, atraumatic. NECK: Supple. HEART: Showed normal first and second heart sounds. No gallop, rub or murmur. CHEST: Clear to auscultation. No crepitation or rhonchi. ABDOMEN: Distended, soft, nontender. NEUROLOGIC: She is lethargic, but arousable. All cranial nerves intact. She moves her extremities without difficulty. SKIN: She has laceration of her left ring finger that was partially sutured. She has multiple injection johnson on both upper extremities and scratch johnson on both lower extremities. LABORATORY DATA: On admission showed a white cell count of 20,500, hemoglobin 13, hematocrit 39, MCV 87 and platelet count of 414,000 with normal manual differential. Her chemistry on admission showed a serum sodium 140, potassium 5.6, chloride 100, bicarbonate 19, anion gap of 21, BUN 64, creatinine 7.2. Estimated GFR was 6.4, glucose 102, calcium was 8.7. Total bilirubin, AST, ALT, alkaline phosphatase were normal. Total protein 7.7, albumin was 3.8. Her CK was 2153. Her urinalysis showed the urine was yellow, hazy with a pH of 5.5, specific gravity 1.025. There was small amount of protein. The urine was negative for glucose, ketones, blood, nitrite, leukocyte esterase. There were 1-2 rbc's, 1-4, wbc's, very few bacteria and her urine toxic screen was positive for amphetamine, methamphetamine. X-ray of the left hand and fingers showed that there is a soft tissue defect along the ulnar margin of the proximal interphalangeal joint of the fourth digit of the left hand. No acute fracture, dislocation. Bone mineralization is within normal limits. Joint spaces are maintained. Minimal punctate radiographic debris identified along the subcutaneous soft tissue. No metallic foreign density. ASSESSMENT AND PLAN: The patient was treated with IV fluid, IV antibiotic. I held her nephrotoxic medication including the meloxicam, Victoza, Janumet, lisinopril as well as hydrochlorothiazide. Continue with IV fluid. Monitor her lab work closely. I will also continue with ceftriaxone. DICTATION ENDS HERE JOVANY DR: Rodrigo TID: [id number]
[2020-09-22] MEDS: LACTOBACILLUS RHAMNOSUS GG 1 CAPSULE. PO SCH (20:52)
[2020-09-22 21:00] VITALS: BP 91/50
[2020-09-23] MEDS: IV NORMAL SALINE 1,000ML 1,000 ML IV SCH ×3 (01:25→14:43)
[2020-09-23 05:26] VITALS: BP 98/71
[2020-09-23 06:49] LABS: HEMATOCRIT 30.3 % (36.0-47.0); HEMOGLOBIN 10.1 g/dL (12.0-15.5); RED BLOOD COUNT 3.39 x10^6/uL (3.50-5.40); RED CELL DISTRIBUTION WIDTH 13.9 % (11.5-14.5); WHITE BLOOD COUNT 8.2 x10^3/uL (4.0-11.0)
[2020-09-23 07:15] LABS: ALBUMIN 2.9 g/dL (3.4-5.0); ALBUMIN/GLOBULIN RATIO 0.8 (1.0-1.7); CALCIUM 7.6 mg/dL (8.5-10.1); GFR 62.7; POTASSIUM 4.9 mmol/L (3.5-5.1); TOTAL BILIRUBIN 0.4 mg/dL (0.2-1.0); TOTAL PROTEIN 6.6 g/dL (6.4-8.2)
[2020-09-23] MEDS: CITALOPRAM 20 MG TABLET. PO SCH (09:08)
[2020-09-23] MEDS: LACTOBACILLUS RHAMNOSUS GG 1 CAPSULE. PO SCH (09:08)
[2020-09-23] MEDS: tiZANidine 4 MG TABLET. PO SCH ×2 (09:08→13:39)
[2020-09-23] MEDS: GABAPENTIN 400 MG CAPSULE. PO SCH ×2 (09:08→13:39)
[2020-09-23] MEDS: BACLOFEN 20 MG TABLET PO SCH ×2 (09:09→13:40)
[2020-09-23 11:22] VITALS: BP 107/57
--- NOTE | 2020-09-23 15:06 | PN ---
SUBJECTIVE: The patient is resting, slightly propped up in bed, in no apparent distress. She is slightly better today. She is more awake, alert, answers questions, although she continued to be eventually restless, probably withdrawing. PHYSICAL EXAMINATION: GENERAL: When I examined her this afternoon, she looked well and was clearly in no apparent respiratory distress. No pallor, jaundice, cyanosis, or thyromegaly. No jugular venous distention. No limb edema. VITAL SIGNS: Her heart rate was 111, blood pressure was 92/61, temperature was 98, respiratory rate was 18 and oxygen saturation was 95%. HEAD, EYES, EARS, NOSE, AND THROAT: Normocephalic, atraumatic. NECK: Supple. HEART: Showed normal first and second heart sounds, no gallop, rub or murmur. CHEST: Clear to auscultation, no crepitation or rhonchi. ABDOMEN: Distended, soft, nontender. NEUROLOGIC: She is definitely more awake, alert, oriented. Cranial nerves intact. She moves extremities without difficulty, although she continued to be unsteady on her feet. LABORATORY DATA: This morning showed a white cell count is down to 11,700, hemoglobin 11, hematocrit 34, MCV 89 and platelet count of 323,000. Serum sodium was 139, potassium is down to 4.3, chloride 103, bicarbonate 20, anion gap of 16, BUN 63, creatinine 4.4. Estimated GFR was 11 mL per minute. Her glucose 115, calcium was 7.8, magnesium was 2.9. Total bilirubin, AST, ALT, alkaline phosphatase were normal. Her CK was 1700. Total protein was 7, albumin was 3.4. ASSESSMENT: Methamphetamine intoxication, acute kidney injury, improving, laceration of her left ring finger, polysubstance abuse including cigarette, methamphetamine, and marijuana. SANTIAGO/BELLA DR: Rodrigo TID: [id number]
--- NOTE | 2020-09-23 23:08 | DS ---
DATE OF DISCHARGE: 09/23/2020 HOSPITAL COURSE: The patient is a 35-year-old female patient who was admitted through the Emergency Room with a laceration of her left ring finger, methamphetamine intoxication as well as acute kidney injury, likely due to rhabdomyolysis. She was treated aggressively with IV fluid and her mentation and kidney function has dramatically improved, such that her creatinine came down from 7.2 down to 1, her creatine kinase came from 2150 to 671. The patient is hemodynamically stable, afebrile. PHYSICAL EXAMINATION: GENERAL: When I saw her today, she looked well and was clearly in no apparent respiratory distress, slightly pale. No jaundice, cyanosis, no lymphadenopathy, no thyromegaly, no jugular venous distention, no limb edema. VITAL SIGNS: Her heart rate was 89, blood pressure was 107/57, temperature was 97.5, respiratory rate was 18 and oxygen saturation was 96% on room air. HEAD, EYES, EARS, NOSE, AND THROAT: Normocephalic, atraumatic. NECK: Supple. HEART: Showed normal first and second heart sounds. No gallop, rub or murmur. CHEST: Clear to auscultation. No crepitation or rhonchi. ABDOMEN: Distended. Soft, nontender. NEUROLOGIC: She is grossly intact. Her intake over the last 24 hours was 3020. No output was recorded. LABORATORY DATA: This morning showed a serum sodium 140, potassium 4.9, chloride 107, bicarbonate 23, anion gap of 10, BUN 27, creatinine 1. Estimated GFR was ____ mL per minute. Her glucose was 86. Calcium was 7.6. Total bilirubin, AST, ALT, alkaline phosphatase were normal. Total CK was 671. Total protein was 6.6, albumin was 2.9. Urinalysis is essentially unremarkable. Urine toxic screen was positive for methamphetamine and amphetamine. DISCHARGE MEDICATIONS: The patient was discharged home to continue on baclofen 20 mg 3 times a day, escitalopram oxalate 20 mg once a day, gabapentin 800 mg 3 times a day, hydrochlorothiazide 25 mg once a day, Lantus insulin 23 units at bedtime, Victoza 1.8 mg subcutaneously daily, lisinopril 20 mg once a day, meloxicam 15 mg once a day, Janumet mg twice a day and tizanidine 2 mg 3 times a day. FINAL DISCHARGE DIAGNOSES: 1. Methamphetamine intoxication. 2. Rhabdomyolysis. 3. Acute kidney injury has resolved. 4. Rheumatoid arthritis. 5. Hypertension. 6. Hyperlipidemia. 7. Type 2 diabetes mellitus. 8. Hepatitis C that was treated. SANTIAGO/LAMONT/JOSHUA DR: Rodrigo TID: [id number]
== END 2020-09-23 15:00 | disposition home or self-care (01) | DRG 982 ==
LOC: ER 16:41 → ICU 18:14
PROVIDERS: ADMIT Internal Medicine; ATTEND Internal Medicine
PROC: 0XQTXZZ Repair Left Ring Finger, External Approach (ICD-10-PCS; principal; 2020-09-21)
DX: S61.215A Laceration without foreign body of left ring finger without damage to nail, initial encounter (principal); M62.82 Rhabdomyolysis; N17.9 Acute kidney failure, unspecified; S61.213A Laceration without foreign body of left middle finger without damage to nail, initial encounter; F15.129 Other stimulant abuse with intoxication, unspecified; Z83.3 Family history of diabetes mellitus; M06.9 Rheumatoid arthritis, unspecified; I10 Essential (primary) hypertension; F17.210 Nicotine dependence, cigarettes, uncomplicated; F12.90 Cannabis use, unspecified, uncomplicated; E87.5 Hyperkalemia; E78.5 Hyperlipidemia, unspecified; E11.9 Type 2 diabetes mellitus without complications; X58.XXXA Exposure to other specified factors, initial encounter; Y93.89 Activity, other specified; Y92.89 Other specified places as the place of occurrence of the external cause; Y99.8 Other external cause status
CPT/HCPCS: 12002; 36415; 73140; 80053; 80307; 81001; 82550; 82947; 83735; 85007; 85025; 85027; 86705; 86709; 86803; 87340; 87522; 90471; 90715; 96361; 96365; 96375; J0696; J1200; J2060; J2270; J2405; 99285-25; J7030

== ENCOUNTER 2020-11-16 21:17 | Emergency (ER) | payer MEDICAID ==
[~2020-11-16] VITALS: Ht 160 cm; Wt 76.5 kg
[~2020-11-16 21:17] MED LIST changes: -CLIN150C15 PO; +CLIN150C16 PO; +ESCITALOPRAM OX20 MG PO; +HYDR-2145 PO; +LISI20TA18 PO; +MELO15TA23 PO; +SITA1TAB11 PO; +TIZA4TAB8 PO
[2020-11-16 21:36] VITALS: BP 158/90
[2020-11-16] MEDS ORDERED: CEPH500C PO (21:48)
--- NOTE | 2020-11-16 21:49 | PHYS DOC ---
Past History Past Medical History: Anxiety, Depression, Diabetes, Hypertension, Other Additional Past Medical Histor: neuropathy, Hep C, drug abuse Past Surgical History: No Surgical History Smoking: Non-smoker Alcohol Use: Rarely Drug Use: Marijuana, Methamphetamine Adult General Chief Complaint Chief Complaint: FOOT INJURY PAIN HPI HPI Patient is a 41-year-old female with a past medical history significant for yuri delvin who presents with 2 blisters on left foot. Stated they have been there a couple of days because she is been walking quite a bit and has tight shoes. Denies any recent traumas, illnesses, fevers, chest pain, shortness of breath, abdominal pain, nausea, vomiting. States she is up-to-date on her tetanus vaccinations. States that it hurts about 3 out of 10 when she walks in her socks and/or shoes scrape against it. Review of Systems Review of Systems Review of systems otherwise unremarkable except noted in HPI Allergies Allergies Allergies Coded Allergies Type Severity Reaction Last Updated Verified No Known Drug Allergies 06/14/18 No Physical Exam Physical Exam Constitutional: Well developed, well nourished, no acute distress, non-toxic appearance. [] Cardiovascular:Heart rate regular rhythm, no murmur [] Lungs & Thorax: Bilateral breath sounds clear to auscultation [] Skin: Warm, dry, no erythema, no rash. [] Extremities: No tenderness, no cyanosis, no clubbing, ROM intact, no edema. [] Neurologic: Alert and oriented X 3, normal motor function, normal sensory function, no focal deficits noted. [] Psychologic: Affect normal, judgement normal, mood normal. [] Current Patient Data Vital Signs Vital Signs Date Time Temp Pulse Resp B/P (MAP) Pulse Ox O2 Delivery O2 Flow Rate FiO2 11/16/20 21:36 98.2 116 16 158/90 (112) 98 Room Air EKG EKG [] Radiology/Procedures Radiology/Procedures [] Heart Score C/O Chest Pain: No Risk Factors: Risk Factors: DM, Current or recent (<one month) smoker, HTN, HLP, family history of CAD, obesity. Risk Scores: Risk Factors: DM, Current or recent (<one month) smoker, HTN, HLP, family history of CAD, obesity. Course & Med Decision Making Course & Med Decision Making Patient is a 41-year-old female presents with blisters on left foot Vital signs notable for hypertension. Physical exam noted above. Cleaned and bandaged blisters. Started on Keflex as she is diabetic. Up-to-date on tetanus. Given oral pain medicine. Advised to follow-up in the morning with her primary care physician. States she has an appointment coming up anyway. Gave return precautions to the ED. Patient grateful, verbalized understanding and agreed with plan of discharge. [] Dragon Disclaimer Dragon Disclaimer This electronic medical record was generated, in whole or in part, using a voice recognition dictation system. Departure Departure: Impression: Primary Impression: Blister Disposition: LEFT AWOL/ELOPED Condition: GOOD Referrals: PCP,WANDA (PCP) RICKIE PALACIO Patient Instructions: Blisters Additional Instructions: Thank you for coming into the emergency department tonight and allowing us to take care of you. Please read the attached information. Please keep the areas clean, dry and bandaged as we discussed. Please take your antibiotics as prescribed until gone. Please call your primary care physician in the morning to update on your ED visit and set up a follow-up visit. Please come back to the ED with new or concerning symptoms as discussed. Scripts Cephalexin (KEFLEX) 500 Mg Capsule 1 CAP PO TID for blisters for 7 Days, #21 CAP Prov: NEAL WRIGHT MD 11/16/20 NEAL WRIGHT MD Nov 16, 2020 21:49
[2020-11-16] MEDS ORDERED: oxyCODONE/APAP 5/325 1 TAB TABLET PO ONE (22:00)
[2020-11-16] MEDS ORDERED: CEPHALEXIN 250 MG CAPSULE PO ONE (22:00)
== END 2020-11-16 22:00 | disposition home or self-care (01) ==
LOC: ER 21:17
DX: S90.822A Blister (nonthermal), left foot, initial encounter (principal); F41.9 Anxiety disorder, unspecified; F32.9 Major depressive disorder, single episode, unspecified; I10 Essential (primary) hypertension; E11.40 Type 2 diabetes mellitus with diabetic neuropathy, unspecified; X58.XXXA Exposure to other specified factors, initial encounter; Y93.89 Activity, other specified; Y92.89 Other specified places as the place of occurrence of the external cause; Y99.8 Other external cause status
CPT/HCPCS: 99283

== ENCOUNTER 2021-02-06 17:14 | Emergency (ER) | payer MEDICAID ==
[~2021-02-06] VITALS: Ht 160 cm; Wt 77.4 kg
[~2021-02-06 17:14] MED LIST changes: +CEPH500C PO
--- NOTE | 2021-02-06 17:44 | PHYS DOC ---
Past History Past Medical History: Anxiety, Depression, Diabetes, Hypertension, Other Additional Past Medical Histor: neuropathy, Hep C, drug abuse (ROSSY YADAV APRN) Past Surgical History: Tubal ligation (ROSSY YADAV APRN) Smoking: Non-smoker Alcohol Use: None Drug Use: Marijuana, Methamphetamine (ROSSY YADAV APRN) General Adult EDM: Chief Complaint: COUGH HPI: HPI: Patient is a 35-year-old female who presents to the emergency department for a 1 month history of a productive cough. She reports that she coughed one time today and it was blood tinged. Patient reports having a sinus infection. Patient has a history of diabetes and hypertension. She reports that she has not been checking her blood sugars or taking her insulin today. She denies fever, shortness of breath, chest pain, nausea, vomiting, body aches, loss of taste or smell, sick exposures or recent travel. Patient's vital signs are stable, she is afebrile and not hypoxic. Patient does use methamphetamines, she states the last time she used was 3 days ago. Patient is having twitching and restlessness in the emergency department room. HPI difficult to obtain due to patients cooperativeness with questioning. (ROSSY YADAV APRN) Review of Systems: Review of Systems: 14 body systems of the review of systems have been reviewed. See HPI for pertinent positive and negative responses, otherwise all other systems are negative, nonpertinent or noncontributory (ROSSY YADAV APRN) Allergies: Allergies: Allergies Coded Allergies Type Severity Reaction Last Updated Verified No Known Drug Allergies 02/06/21 No (ROSSY YADAV APRN) Physical Exam: PE: Constitutional: Well developed, well nourished, no acute distress, non-toxic appearance. [] HENT: Normocephalic, atraumatic, bilateral external ears normal, oropharynx moist, no oral exudates, nose normal. [] Eyes: PERRL, EOMI, conjunctiva normal, no discharge. [] Neck: Normal range of motion, no stridor Cardiovascular:Heart rate regular rhythm, no murmur [] Lungs & Thorax: Bilateral breath sounds clear to auscultation [] Abdomen: Bowel sounds normal, soft, no tenderness, no masses, no pulsatile masses. [] Skin: Warm, dry, no erythema, no rash, multiple papular lesions with scabs noted to entire body consistent with skin picking Back: normal rom Extremities: No tenderness, no cyanosis, no clubbing, ROM intact, no edema. [] Neurologic: Alert and oriented X 3, normal motor function, normal sensory function, no focal deficits noted. [] Psychologic: Affect normal, judgement normal, mood normal. [] (ROSSY YADAV APRN) Current Patient Data: Labs: Laboratory Tests Test 02/06/21 17:45 02/06/21 17:49 White Blood Count 6.9 x10^3/uL Red Blood Count 4.13 x10^6/uL Hemoglobin 12.6 g/dL Hematocrit 37.5 % Mean Corpuscular Volume 91 fL Mean Corpuscular Hemoglobin 31 pg Mean Corpuscular Hemoglobin Concent 34 g/dL Red Cell Distribution Width 14.4 % Platelet Count 278 x10^3/uL Neutrophils (%) (Auto) 51 % Lymphocytes (%) (Auto) 37 % Monocytes (%) (Auto) 10 % Eosinophils (%) (Auto) 1 % Basophils (%) (Auto) 1 % Neutrophils # (Auto) 3.5 x10^3uL Lymphocytes # (Auto) 2.6 x10^3/uL Monocytes # (Auto) 0.7 x10^3/uL Eosinophils # (Auto) 0.0 x10^3/uL Basophils # (Auto) 0.0 x10^3/uL Sodium Level 139 mmol/L Potassium Level 3.3 mmol/L Chloride Level 105 mmol/L Carbon Dioxide Level 24 mmol/L Anion Gap 10 Blood Urea Nitrogen 13 mg/dL Creatinine 0.7 mg/dL Estimated GFR (Cockcroft-Gault) 94.7 BUN/Creatinine Ratio 19 Glucose Level 229 mg/dL Calcium Level 8.8 mg/dL Total Bilirubin 0.2 mg/dL Aspartate Amino Transf (AST/SGOT) 41 U/L Alanine Aminotransferase (ALT/SGPT) 44 U/L Alkaline Phosphatase 95 U/L Total Protein 7.7 g/dL Albumin 3.6 g/dL Albumin/Globulin Ratio 0.9 Influenza Type A (Rapid) Negative Influenza Type B (Rapid) Negative Vital Signs: Vital Signs Date Time Temp Pulse Resp B/P (MAP) Pulse Ox O2 Delivery O2 Flow Rate FiO2 02/06/21 17:26 97.4 104 24 153/94 (113) 97 Room Air (ROSSY YADAV APRN) EKG: EKG: [] (ROSSY YADAV APRN) Radiology/Procedures: Radiology/Procedures: []PROCEDURE: PORTABLE CHEST 1V XR CHEST 1V Clinical Indication: Reason: cough / Comparison: AP chest September 08, 2018. Findings: The cardiomediastinal silhouette is normal. There are faint bilateral perihilar and left upper lung and right basilar airspace opacities. There is no pneumothorax. No pleural effusion is appreciated. No acute bone abnormality. IMPRESSION: There are faint bilateral perihilar and left upper lung and right basilar airspace opacities that may be infectious/inflammatory or atelectatic. Electronically signed by: David Snyder MD (02/06/2021 6:46 PM) [facility] DICTATED AND SIGNED BY: DAVID SNYDER MD DATE: 02/06/21 184 CC: ROSSY YADAV APRN; PCP,NO ~MTH0 0 (ROSSY YADAV APRN) Heart Score: C/O Chest Pain: No Risk Factors: Risk Factors: DM, Current or recent (<one month) smoker, HTN, HLP, family history of CAD, obesity. Risk Scores: Score 0 - 3: 2.5% MACE over next 6 weeks - Discharge Home Score 4 - 6: 20.3% MACE over next 6 weeks - Admit for Clinical Observation Score 7 - 10: 72.7% MACE over next 6 weeks - Early Invasive Strategies (ROSSY YADAV APRN) Course & Med Decision Making: Course & Med Decision Making Pertinent Labs and Imaging studies reviewed. (See chart for details) Patient is seen in the emergency department today for a productive cough x1 month. She reports that today she noticed some blood in her sputum. Work-up in the ER consisted of blood work as patient has a history of diabetes and checking her blood sugar today. Chest x-ray performed. Patient's vital signs are stable, she is not hypoxic and she is afebrile. Patient CBC is unremarkable. She was noted to have hypokalemia and this was replaced in the emergency department. Patient's blood sugar was 229 this was treated with IV fluids. Patient's chest x-ray shows a faint perihilar and left upper lobe and right basilar airspace opacity indicating possible pneumonia and this was treated with an antibiotic. Patient given first dose in the emergency department. Patient's vital signs continue to be stable and she is in no acute distress. Patient advised to take antibiotic and follow-up with her primary care provider. She was also advised to monitor her blood sugars and take her medications as prescribed. I discussed with patient all findings and diagnostic testing as well as the need to follow-up with PCP for further evaluation and treatment or return to the ER if any new or worsening symptoms. Strict return precautions were also discussed at length. Patient voiced understanding and agreement with the plan. Patient is hemodynamically stable at the time of disposition. (ROSSY YADAV APRN) Dragon Disclaimer: Dragon Disclaimer: This electronic medical record was generated, in whole or in part, using a voice recognition dictation system. (ROSSY YADAV APRN) Attending Co-Sign The patient was seen and interviewed as well as examined at the bedside. The chart was reviewed. The case was discussed. Agree with the plan of care. (LUIS M HENRY DO) Departure Departure: Impression: Primary Impression: Pneumonia Qualified Codes: J18.9 - Pneumonia, unspecified organism Additional Impression: Person under investigation for COVID-19 Disposition: HOME / SELF CARE / HOMELESS Condition: GOOD Referrals: PCP,NO (PCP) Patient Instructions: Pneumonia, Adult Additional Instructions: You were seen in the emergency department today for a cough. You were noted to have hypokalemia on your blood work this was treated with supplementation in the emergency department. Please ensure that you are eating potassium rich foods at home like green leafy vegetables and bananas. Your blood sugar was 229 in the emergency department and this was treated with IV fluids. Please continue to monitor your blood sugars at home and take your insulin as prescribed. Your chest x-ray shows a possible pneumonia. This was treated with an antibiotic. You were given your first dose in the emergency department. Please make sure that you start and finish the other antibiotic as directed. Increase your fluids and rest. You were tested in the emergency department today for COVID- 19. You will be notified of these results when they become available in approximately 2 days. Please self isolate until you receive these results. Please follow-up with your primary care provider tomorrow regarding your ER visit. Please return to the emergency department if you develop shortness of breath, chest pain, high fevers refractory to treatment, intractable nausea or vomiting or any new or worsening concerns. Scripts Azithromycin (AZITHROMYCIN TABLET) 250 Mg Tablet 250 MG PO DAILY for ANTI-BIOTIC for 4 Days, #4 TAB 0 Refills Prov: ROSSY YADAV APRN 02/06/21 ROSSY YADAV APRN Feb 06, 2021 17:44 LUIS M HENRY DO Feb 07, 2021 19:11
[2021-02-06 18:06] LABS: BASO % 1 % (0-3); EOS % 1 % (0-3); HEMATOCRIT 37.5 % (36.0-47.0); HEMOGLOBIN 12.6 g/dL (12.0-15.5); LYMPH # 2.6 x10^3/uL (1.0-4.8); LYMPH % 37 % (24-48); MEAN CORPUSCULAR HEMOGLOBIN 31 pg (25-35); MEAN CORPUSCULAR HGB CONC 34 g/dL (31-37); MEAN CORPUSCULAR VOLUME 91 fL (79-100); MONO # 0.7 x10^3/uL (0.0-1.1); MONO % 10 % (0-9); NEUT # 3.5 x10^3uL (1.8-7.7); NEUT % 51 % (31-73); PLATELET COUNT 278 x10^3/uL (140-400); RED BLOOD COUNT 4.13 x10^6/uL (3.50-5.40); RED CELL DISTRIBUTION WIDTH 14.4 % (11.5-14.5); WHITE BLOOD COUNT 6.9 x10^3/uL (4.0-11.0)
[2021-02-06 18:17] LABS: CALCIUM 8.8 mg/dL (8.5-10.1); CREATININE 0.7 mg/dL (0.6-1.0); GFR 94.7; POTASSIUM 3.3 mmol/L (3.5-5.1)
[2021-02-06 18:25] LABS: ALBUMIN 3.6 g/dL (3.4-5.0); ALBUMIN/GLOBULIN RATIO 0.9 (1.0-1.7); TOTAL BILIRUBIN 0.2 mg/dL (0.2-1.0); TOTAL PROTEIN 7.7 g/dL (6.4-8.2)
[2021-02-06 18:37] LABS: INFLUENZA A PATIENT NEGATIVE (NEGATIVE); INFLUENZA B PATIENT NEGATIVE (NEGATIVE)
--- NOTE | 2021-02-06 18:48 | RAD ---
XR CHEST 1V Clinical Indication: Reason: cough / Comparison: AP chest September 08, 2018. Findings: The cardiomediastinal silhouette is normal. There are faint bilateral perihilar and left upper lung a nd right basilar airspace opacities. There is no pneumothorax. No pleural effusion is appreciated. No acute bone abnormality. IMPRESSION: There are faint bilateral perihilar and left upper lung and right basilar airspace opacities that may be infectious/inflammatory or atelectatic. Electronically signed by: David Aquino MD (02/06/2021 6:46 PM) [facility]
[2021-02-06] MEDS ORDERED: POTASSIUM CHLORIDE 20 MEQ TABLET.ER. PO ONE (19:15)
[2021-02-06] MEDS ORDERED: AZIT250T6 PO (19:15)
[2021-02-06] MEDS ORDERED: AZITHROMYCIN 250 MG TABLET. PO ONE (19:15)
[2021-02-06] MEDS ORDERED: IV NORMAL SALINE 1,000ML 1,000 ML IV ONE (19:15)
[2021-02-06 20:21] VITALS: BP 148/102
== END 2021-02-06 20:32 | disposition home or self-care (01) ==
LOC: ER 17:14
DX: J18.9 Pneumonia, unspecified organism (principal); F41.9 Anxiety disorder, unspecified; F31.9 Bipolar disorder, unspecified; E11.9 Type 2 diabetes mellitus without complications; I10 Essential (primary) hypertension; Z20.822 Contact with and (suspected) exposure to COVID-19
CPT/HCPCS: 71045; 80053; 85025; 87804; 96360; 99285; C9803; J7030; U0003

== ENCOUNTER 2021-02-08 01:43 | Emergency (ER) | payer MEDICAID ==
[~2021-02-08 01:43] MED LIST changes: +AZIT250T6 PO
--- NOTE | 2021-02-08 08:39 | RAD ---
XR EXAM OF ANKLE_LEFT 3V History: Fall, left ankle pain. Comparison: None. Technique: 3 views of the left ankle. Findings: Osseous mineralization is normal. No acute fracture or dislocaton. The ankle mortise and talar dome a re intact. Achilles insertion enthesophyte. Focal soft tissue thickening in the region of the distal Achilles, just proximal to the calcaneus. Impression: 1. No acute osseous abnormality of the left ankle. 2. Fusiform soft tissue swelling at the level of the distal Achilles, correlate for Achilles tendino crissy. Electronically signed by: Krzysztof Baez MD (02/08/2021 8:37 AM) [facility]
--- NOTE | 2021-02-10 09:46 | NUR ---
Attempted to reach patient for covid results. Phone not in service.
== END 2021-02-08 02:58 | disposition home or self-care (01) ==
LOC: ER 01:43
DX: S80.211A Abrasion, right knee, initial encounter (principal); M25.572 Pain in left ankle and joints of left foot; F15.10 Other stimulant abuse, uncomplicated; W18.39XA Other fall on same level, initial encounter; Y93.01 Activity, walking, marching and hiking; Y92.89 Other specified places as the place of occurrence of the external cause; Y99.8 Other external cause status
CPT/HCPCS: 73610; 99283

== ENCOUNTER 2021-06-07 11:38 | Emergency (ER) | payer MEDICAID ==
[~2021-06-07] VITALS: Ht 160 cm; Wt 77.4 kg
[2021-06-07] MEDS ORDERED: PIPERACILLIN/TAZOBACTAM 4.5 GM in IV NORMAL SALINE 50ML 50 ML IV ONE (12:30)
[2021-06-07] MEDS ORDERED: IV NORMAL SALINE 1,000ML 1,000 ML IV ONE ×2 (12:30→15:15)
[2021-06-07] MEDS ORDERED: VANCOMYCIN PER PHARMACY MC PRN (12:30)
[2021-06-07] MEDS ORDERED: VANCOMYCIN 2 GM in IV NORMAL SALINE 500ML 500 ML IV ONE (13:00)
[2021-06-07] MEDS ORDERED: ACETAMINOPHEN 500 MG TABLET PO ONE (13:00)
[2021-06-07] MEDS ORDERED: INSULIN REGULAR 100 UNIT/ML 3ML VIAL. SQ ONE (13:00)
[2021-06-07] MEDS ORDERED: IV NORMAL SALINE 50ML 50 ML ONE (13:22)
[2021-06-07] MEDS ORDERED: PIPERACILLIN/TAZOBACTAM 4.5 GM VIAL IV ONE (13:22)
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
[2021-06-07 13:27] LABS: BARBITURATES NEG (NEG); BENZODIAZEPINES NEG (NEG); CANNABINOIDS POS (NEG); COCAINE NEG (NEG); METHADONE NEG (NEG); OPIATES NEG (NEG); PHENCYCLIDINE NEG (NEG)
[2021-06-07 13:29] LABS: AMPHETAMINE/METHAMPHETAMINE POS (NEG)
[2021-06-07 13:43] LABS: BASO % 0 % (0-3); EOS % 0 % (0-3); HEMATOCRIT 34.1 % (36.0-47.0); HEMOGLOBIN 11.1 g/dL (12.0-15.5); LYMPH # 0.9 x10^3/uL (1.0-4.8); LYMPH % 6 % (24-48); MEAN CORPUSCULAR HEMOGLOBIN 29 pg (25-35); MEAN CORPUSCULAR HGB CONC 33 g/dL (31-37); MEAN CORPUSCULAR VOLUME 89 fL (79-100); MONO # 1.1 x10^3/uL (0.0-1.1); MONO % 7 % (0-9); NEUT # 13.7 x10^3uL (1.8-7.7); NEUT % 87 % (31-73); PLATELET COUNT 293 x10^3/uL (140-400); RED BLOOD COUNT 3.84 x10^6/uL (3.50-5.40); WHITE BLOOD COUNT 15.7 x10^3/uL (4.0-11.0)
[2021-06-07 14:03] LABS: CALCIUM 8.6 mg/dL (8.5-10.1); CREATININE 1.1 mg/dL (0.6-1.0); GFR 55.9
[2021-06-07 14:05] LABS: BACTERIA,URINE MANY /HPF (0-FEW); CLARITY,URINE CLOUDY; COLOR,URINE YELLOW; GLUCOSE,URINE >=1000 mg/dL (NEG); NITRITE,URINE POS (NEG); RBC,URINE 0 /HPF (0-2); SQUAMOUS EPITHELIAL CELL,UR MANY /LPF; UROBILINOGEN,URINE 0.2 mg/dL (0.2 mg/dL); WBC,URINE 20-40 /HPF (0-4)
--- NOTE | 2021-06-07 14:10 | RAD ---
EXAM: LEFT FOOT 3 VIEWS. HISTORY: First toe pain and swelling. COMPARISON: None. FINDINGS: Three views of the left foot are obtained. There is soft tissue swelling about the first to e. There is no cortical erosion to suggest acute osteomyelitis. An ulcer is suspected along the plant ar aspect of the first metatarsal head. No fractures are identified. Alignment is normal. Joint spaces are maintained. There are small planta r and moderate posterior calcaneal spurs. IMPRESSION: 1. Soft tissue swelling. Ulcer along the plantar aspect of the first metatarsal. No evidence of acute osteomyelitis by radiographs. Electronically signed by: Eduardo Mai MD (06/07/2021 2:08 PM) [id number]
[2021-06-07 14:12] LABS: ACETAMIN < 2.0 mcg/mL (10-30); SALIC 4.6 mg/dL (2.8-20.0)
[2021-06-07] MEDS ORDERED: BACLOFEN 20 MG TABLET PO ONE (14:15)
[2021-06-07] MEDS ORDERED: GABAPENTIN 400 MG CAPSULE. PO ONE (14:15)
[2021-06-07 14:16] LABS: ALBUMIN 2.5 g/dL (3.4-5.0); ALBUMIN/GLOBULIN RATIO 0.5 (1.0-1.7); TOTAL BILIRUBIN 0.3 mg/dL (0.2-1.0); TOTAL PROTEIN 7.8 g/dL (6.4-8.2)
[2021-06-07 14:20] LABS: MONONUCLEOSIS PATIENT NEGATIVE (NEGATIVE)
[2021-06-07 15:08] LABS: C REACTIVE PROTEIN 283.2 mg/L (0-3.3)
[2021-06-07] MEDS ORDERED: IV NORMAL SALINE 500ML 500 ML IV ONE (15:15)
[2021-06-07 16:15] LABS: SEDIMENTATION RATE 129 (0-25)
[2021-06-07 16:30] VITALS: BP 112/55
--- NOTE | 2021-06-07 17:05 | RAD ---
EXAMINATION: Chest radiograph. VIEWS: Single AP view of the chest COMPARISON: 02/06/2021 INDICATION:36 years, Female, right IJ central line placement, evaluate positioning. FINDINGS: Lungs are mildly hypoinflated. Right IJ central venous line terminates within the distal SVC. Heart s ize normal. Prominent indistinct central pulmonary vasculature hazy bilateral airspace opacities. No pleural effusion or pneumothorax. No acute osseous process. IMPRESSION: 1. Normal positioned right IJ central venous line with no immediate postprocedural complication. 2. Findings favor mild interstitial pulmonary edema. Superimposed infection is difficult to exclude. Electronically signed by: Colt Busby DO (06/07/2021 5:03 PM) [id number]
[2021-06-07 20:55] LABS: % BANDS 2 % (0-9); % LYMPHS 5 % (24-48); % MONOS 6 % (0-10); % SEGS 87 % (35-66); PLT ESTIMATE ADEQUATE (ADEQUATE)
== END 2021-06-07 17:45 | disposition short-term general hospital (02) ==
LOC: ER 11:49
DX: A41.9 Sepsis, unspecified organism (principal); R65.21 Severe sepsis with septic shock; E13.621 Other specified diabetes mellitus with foot ulcer; L97.522 Non-pressure chronic ulcer of other part of left foot with fat layer exposed; N12 Tubulo-interstitial nephritis, not specified as acute or chronic; L03.116 Cellulitis of left lower limb; E11.65 Type 2 diabetes mellitus with hyperglycemia; R45.851 Suicidal ideations; F15.10 Other stimulant abuse, uncomplicated; F41.9 Anxiety disorder, unspecified; M06.9 Rheumatoid arthritis, unspecified; F32.9 Major depressive disorder, single episode, unspecified; I10 Essential (primary) hypertension; E11.40 Type 2 diabetes mellitus with diabetic neuropathy, unspecified; F17.210 Nicotine dependence, cigarettes, uncomplicated; Z20.822 Contact with and (suspected) exposure to COVID-19
CPT/HCPCS: 36415; 36556; 71045; 73630; 80053; 80307; 80329; 81001; 81025; 82010; 82803; 82947; 83605; 83735; 85007; 85025; 85651; 86140; 86308; 87040; 87070; 87077; 87086; 87186; 87880; 96365; 96366; 96368; 96372; 96375; 99291; C9803; G0480; J1815; J2060; J2543; J3370; J7030; J7040; U0003

== ENCOUNTER 2021-06-26 18:21 | Emergency (ER) | payer MEDICAID ==
[~2021-06-26] VITALS: Ht 160 cm; Wt 77.4 kg
[2021-06-26 18:38] VITALS: BP 118/81
--- NOTE | 2021-06-26 19:11 | PHYS DOC ---
Past History Past Medical History: Anxiety, Arthritis, Depression, Diabetes, Hypertension, Other Additional Past Medical Histor: neuropathy, Hep C, drug abuse (SRIRAM FLORES APRN) Past Surgical History: Tubal ligation (SRIRAM FLORES APRN) Smoking: Cigarettes, Less than 1pk/day Alcohol Use: None Drug Use: Marijuana, Methamphetamine (SRIRAM FLORES APRN) General Adult EDM: Chief Complaint: WOUND CHECK HPI: HPI: Patient is a 36-year-old female presents with wound check. Patient states that she removed her wound VAC today trying to redress on her own. Patient is currently seeing wound care at [facility]. Patient denies pain. Mild drainage from outer wound. patient has a history of drug abuse. Patient admits to using methamphetamine earlier today. History of type 2 diabetes. (SRIRAM FLORES APRN) Review of Systems: Review of Systems: ROS At least 10 ROS systems have been reviewed and are negative except as documented in the HPI. General: Negative except as outlined in HPI above. Skin: Negative except as outlined in HPI above. HEENT: Negative except as outlined in HPI above. Neck: Negative except as outlined in HPI above. Respiratory: Negative except as outlined in HPI above.. Cardiovascular: Negative except as outlined in HPI above. Abdomen: Negative except as outlined in HPI above. : Negative except as outlined in HPI above. Back/MSK: Negative except as outlined in HPI above. Neuro: Negative except as outlined in HPI above. Psych: Negative except as outlined in HPI above. (SRIRAM FLORES APRN) Allergies: Allergies: Allergies Coded Allergies Type Severity Reaction Last Updated Verified No Known Drug Allergies 02/06/21 No (SRIRAM FLORES APRN) Physical Exam: PE: Constitutional: Well developed, well nourished, no acute distress, non-toxic appearance. [] HENT: Normocephalic, atraumatic, bilateral external ears normal, oropharynx moist, no oral exudates, nose normal. [] Eyes: PERRLA, EOMI, conjunctiva normal, no discharge. [] Neck: Normal range of motion, no tenderness, supple, no stridor. [] Cardiovascular:Heart rate regular rhythm, no murmur [] Lungs & Thorax: Bilateral breath sounds clear to auscultation [] Abdomen: Bowel sounds normal, soft, no tenderness, no masses, no pulsatile masses. [] Skin: Wound to middle of right foot. Wound to outer side of foot, minimal drainage, no tenderness Back: No tenderness, no CVA tenderness. [] Extremities: No tenderness, no cyanosis, no clubbing, ROM intact, no edema. [] Neurologic: Alert and oriented X 3, normal motor function, normal sensory functi on, no focal deficits noted. [] Psychologic: Affect normal, judgement normal, mood normal. [] (SRIRAM FLORES APRN) Current Patient Data: Vital Signs: Vital Signs Date Time Temp Pulse Resp B/P (MAP) Pulse Ox O2 Delivery O2 Flow Rate FiO2 06/26/21 18:38 98.5 65 16 118/81 (93) 98 Room Air (SRIRAM FLORES APRN) EKG: EKG: [] (SRIRAM FLORES APRN) Radiology/Procedures: Radiology/Procedures: [] (SRIRAM FLORES APRN) Heart Score: C/O Chest Pain: No Risk Factors: Risk Factors: DM, Current or recent (<one month) smoker, HTN, HLP, family history of CAD, obesity. Risk Scores: Score 0 - 3: 2.5% MACE over next 6 weeks - Discharge Home Score 4 - 6: 20.3% MACE over next 6 weeks - Admit for Clinical Observation Score 7 - 10: 72.7% MACE over next 6 weeks - Early Invasive Strategies (SRIRAM FLORES APRN) Course & Med Decision Making: Course & Med Decision Making Pertinent Labs and Imaging studies reviewed. (See chart for details) [] Nontoxic-appearing, 36-year-old female presents for wound check. Patient states that she removed her wound VAC earlier today trying to redress on her own. Patient was unsuccessful and reattaching the wound VAC. Patient has a history of methamphetamine use and reports using earlier today. Patient's was sinus tachycardia, 120s. All other vitals are within normal limits. Patient is afebrile. Patient does report using methamphetamine earlier today. Wound was redressed. Discussed keeping the wound clean. Advised patient she needs to follow-up with wound care tomorrow morning at [facility] to have it redressed and attached properly to the wound VAC. Patient states that she is already contacted wound care and is supposed to be following up tomorrow after her court appearance. Patient is appreciative and okay with discharge plan. (SRIRAM FLORES APRN) [place] Disclaimer: Jarrod Disclaimer: This electronic medical record was generated, in whole or in part, using a voice recognition dictation system. (SRIRAM FLORES APRN) Departure Departure: Impression: Primary Impression: Wound of foot Disposition: HOME / SELF CARE / HOMELESS Condition: STABLE Referrals: PCP,NO (PCP) Patient Instructions: Wound Care, [id number] Additional Instructions: Your wound was redressed. Please leave the dressing intact. Follow-up with wound care at [facility] tomorrow, for reattachment of your wound VAC. Keep the wound and dressing clean and dry. Return to emergency room for worsening symptoms or concerns. EMERGENCY DEPARTMENT GENERAL DISCHARGE INSTRUCTIONS Thank you for coming to [facility] (ED) today and trusting us with you care. We trust that you had a positivie experience in our Emergency Department. If you wish to speak to the department management, you may call the director at [phone]. YOUR FOLLOW UP INSTRUCTIONS ARE FOLLOWS: 1. Do you have a private Doctor? If you do not have a private doctor, please ask for a resource list of physicians or clinics that may be able to assist you with follow up care. 2. The Emergency Physician has interpreted your x-rays. The X-Ray specialist will also review them. If there is a change in the findings, you will be notified in 48 hours when at all possible. 3. A lab test or culture has been done, your results will be reviewed and you will be notified if you need a change in treatment. ADDITIONAL INSTRUCTIONS AND INFORMATION: 1. Your care today has been supervised by a physician who is specially trained in emergency care. Many problems require more than one evaluation for a complete diagnosis and treatment. We recommend that you schedule your follow up appointment as recommended to ensure complete treatment of you illness or injury. If you are unable to obtain follow up care and continue to have a problem, or if your condition worsens, we recommend that you return to the ED. 2. We are not able to safely determine your condition over the phone nor are we able to give sound medical advice over the phone. For these safety reasons, if you call for medical advice we will ask you to come to the ED for further evaluation. 3. If you have any questions regarding these discharge instructions please call the ED at [phone]. SAFETY INFORMATION: In the interest of safety, wellness, and injury prevention; we encourage you to wear your sealbelt, if you smoke; quite smoking, and we encourage family to use a protective helmet for bicycling and other sporting events that present an increased risk for head injury. IF YOUR SYMPTOMS WORSEN OR NEW SYMPTOMS DEVELOP, OR YOU HAVE CONCERNS ABOUT YOUR CONDITION; OR IF YOUR CONDITION WORSENS WHILE YOU ARE WAITING FOR YOUR FOLLOW UP APPOINTMENT; EITHER CONTACT YOUR PRIMARY CARE DOCTOR, THE PHYSICIAN WHOSE NAME AND NUMBER YOU WERE GIVEN, OR RETURN TO THE ED IMMEDIATELY. Attending Signature Attending Signature I have participated in the care of this patient and I have reviewed and agree with all pertinent clinical information above including history, exam, and recommendations. (NOEL TRONCOSO MD) Dragon Disclaimer This chart was dictated in whole or in part using Voice Recognition software in a busy, high-work load, and often noisy Emergency Department environment. It may contain unintended and wholly unrecognized errors or omissions. (NOEL TRONCOSO MD) SRIRAM [address] TEST EXAMINER Jun 26, 2021 19:11 NOEL TRONCOSO MD Jun 27, 2021 07:21
== END 2021-06-26 19:52 | disposition home or self-care (01) ==
LOC: ER 18:21
DX: S91.301A Unspecified open wound, right foot, initial encounter (principal); M19.90 Unspecified osteoarthritis, unspecified site; E11.9 Type 2 diabetes mellitus without complications; I10 Essential (primary) hypertension; F17.210 Nicotine dependence, cigarettes, uncomplicated; F15.10 Other stimulant abuse, uncomplicated; F12.10 Cannabis abuse, uncomplicated; X58.XXXA Exposure to other specified factors, initial encounter; Y93.89 Activity, other specified; Y92.89 Other specified places as the place of occurrence of the external cause; Y99.8 Other external cause status
CPT/HCPCS: 99281